=== PATIENT | female | born 1955 | race Caucasian/White ===

== ENCOUNTER 2022-04-29 08:00 | Outpatient (CLI) | payer BC ==
[2022-04-29 12:11] LABS: BASOPHILS # (AUTO) 0.1 10^3/uL (0.0-0.1); BASOPHILS % (AUTO) 1.2 %; EOSINOPHILS # (AUTO) 0.1 10^3/uL (0.0-0.7); EOSINOPHILS % (AUTO) 1.8 %; HGB - HEMOGLOBIN 15.1 g/dL (12.0-16.0); LYMPHOCYTES # (AUTO) 1.1 10^3/uL (1.5-3.5); LYMPHOCYTES % (AUTO) 18.4 %; MEAN CORPUSCULAR HEMOGLOBIN 31.1 pg (27.0-31.0); MEAN CORPUSCULAR HGB CONC 32.8 g/dL (32.0-36.0); MEAN CORPUSCULAR VOLUME 94.7 fL (81.0-99.0); MEAN PLATELET VOLUME 11.5 fL (7.9-10.8); MONOCYTES # (AUTO) 0.3 10^3/uL (0.0-1.0); MONOCYTES % (AUTO) 5.7 %; NEUTROPHILS # (AUTO) 4.3 10^3/uL (1.5-6.6); NEUTROPHILS % (AUTO) 72.4 %; PLT - PLATELET COUNT 149 10^3/uL (130-450); RED BLOOD COUNT 4.86 10^6/uL (4.20-5.40)
[2022-04-29 12:37] LABS: CALCIUM 9.7 mg/dL (8.5-10.3); CREATININE 0.7 mg/dL (0.4-1.0); POTASSIUM 4.2 mmol/L (3.5-5.0)
== END 2022-04-29 23:59 | disposition home or self-care (01) ==
LOC: LAB.N 08:00
PROVIDERS: ATTEND Physician Assistant Medical
DX: R10.9 Unspecified abdominal pain (principal)
CPT/HCPCS: 36415; 80048; 85025

== ENCOUNTER 2022-05-01 09:12 | Emergency (ER) | payer BC ==
[2022-05-01 09:34] VITALS: BP 141/70
--- NOTE | 2022-05-01 09:55 | ED Physician Documentation ---
PD HPI BACK PAIN - Stated complaint Stated Complaint: FLANK PX - Chief complaint Chief Complaint: Abd Pain - History obtained from History obtained from: Patient - History of Present Illness Timing - onset: How many days ago (few) Timing - duration: Days Timing - details: Abrupt onset, Waxing and waning Location: Mid, Right (around kidney/lower ribs area) Quality: Pain, Aching. No: Sharp, Tearing Associated symptoms: No: Fever, Weakness, Numbness Improves with: Rest Worsened by: Movement. No: Twisting, Palpation Contributing factors: No: Lifting, Twisting, Trauma Similar symptoms before: Has not had sx before Review of Systems Constitutional: denies: Fever, Chills Nose: denies: Rhinorrhea / runny nose, Congestion Throat: denies: Sore throat Cardiac: denies: Chest pain / pressure, Pedal edema, Calf pain Respiratory: denies: Cough Skin: denies: Rash, Lesions Neurologic: denies: Focal weakness, Numbness, Near syncope PD PAST MEDICAL HISTORY - Past Medical History Cardiovascular: None Respiratory: None Neuro: None Endocrine/Autoimmune: None - Present Medications Home Medications: Ambulatory Orders Medication Instructions Recorded Confirmed Losartan [Cozaar] 50 mg PO DAILY 05/01/22 05/01/22 - Allergies Allergies/Adverse Reactions: Allergies Allergy/AdvReac Type Severity Reaction Status Date / Time cephalexin [From Keflex] Allergy Unknown Verified 05/01/22 09:30 PD ED PE NORMAL - Vitals Vital signs reviewed: Yes - General General: Alert and oriented X 3, No acute distress, Well developed/nourished, Other (she declined any meds for the pain. ) - Cardiac Cardiac: RRR, No murmur - Respiratory Respiratory: Clear bilaterally - Abdomen Abdomen: Normal bowel sounds, Soft, Non distended, No organomegaly, Other (some tender RUQ without guarding nor percussion tenderness. ) - Back Back: No spinal TTP - Derm Derm: Normal color, Warm and dry, No rash - Neuro Neuro: Alert and oriented X 3, No motor deficit, No sensory deficit, Normal speech Results - Vitals Vitals: Oxygen O2 Source Room air - Labs Labs: Laboratory Tests 05/01/22 05/01/22 05/01/22 09:38 10:28 10:28 WBC 7.0 RBC 5.02 Hgb 15.7 Hct 46.8 MCV 93.2 MCH 31.3 H MCHC 33.5 RDW 13.1 Plt Count 174 MPV 11.2 H Neut # (Auto) 4.7 Lymph # (Auto) 1.6 [place] # (Auto) 0.5 Eos # (Auto) 0.2 Baso # (Auto) 0.1 Absolute Nucleated RBC 0.00 Nucleated RBC % 0.0 Sodium 137 Potassium 4.2 Chloride 99 L Carbon Dioxide 28 Anion Gap 10.0 BUN 15 Creatinine 0.7 Estimated GFR (MDRD) 84 L Glucose 114 H Calcium 10.0 Total Bilirubin 0.6 AST 60 H ALT 71 H Alkaline Phosphatase 116 Total Protein 7.5 Albumin 4.4 Globulin 3.1 Albumin/Globulin Ratio 1.4 Lipase 32 Urine Color YELLOW Urine Clarity CLEAR Urine pH 7.0 Ur Specific [place] 1.010 Urine Protein NEGATIVE Urine Glucose (UA) NEGATIVE Urine Ketones NEGATIVE Urine Occult Blood NEGATIVE Urine Nitrite NEGATIVE Urine Bilirubin NEGATIVE Urine Urobilinogen 0.2 (NORMAL) Ur Leukocyte Esterase NEGATIVE Ur Microscopic Review NOT INDICATED Urine Culture Comments NOT INDICATED - Rads (name of study) upper abd U/S Radiology: Prelim report reviewed (no acute findings. Renal cyst. ), See rad report PD MEDICAL DECISION MAKING - ED course Complexity details: reviewed results (no acute abnormality on imaging. Presume pain is musculoskeletal. ), considered differential (consider kidney stone, muscular, GB, vascular, skeletal. Discussed imaging with patient adn had consensus on CT but then patient changed and did not want the radiation compon ent, so changed to U/S. ), d/w patient Departure - Departure Disposition: 01 Home, Self Care Clinical Impression: Flank pain Condition: Stable Record reviewed to determine appropriate education?: Yes Instructions: ED Flank Pain Uncertain Cause Comments: Your CT scan shows a small kidney cyst which is something you have known about. There is no signs of acute inflammation or swelling of the kidney. The upper abdomen appears normal for you. The common bile duct is slightly enlarged at 7 mm but this is actually fairly common size after gallbladder surgery. Your lab tests and urine tests are normal. At this point I would presume musculoskeletal cause of your pain. I would suggest ibuprofen 400 to 600 mg 3 times a day with food regularly for the next several days to week. To that add Tylenol every 4-6 hours if needed for pain. Recheck if not improving well over the next several days to week. Return if worsening or other symptoms associated. Discharge Date/Time: 05/01/22 13:17
[2022-05-01 10:39] LABS: BASOPHILS # (AUTO) 0.1 10^3/uL (0.0-0.1); BASOPHILS % (AUTO) 1.2 %; EOSINOPHILS # (AUTO) 0.2 10^3/uL (0.0-0.7); EOSINOPHILS % (AUTO) 2.2 %; HCT - HEMATOCRIT 46.8 % (37.0-47.0); HGB - HEMOGLOBIN 15.7 g/dL (12.0-16.0); LYMPHOCYTES # (AUTO) 1.6 10^3/uL (1.5-3.5); LYMPHOCYTES % (AUTO) 22.4 %; MEAN CORPUSCULAR HEMOGLOBIN 31.3 pg (27.0-31.0); MEAN CORPUSCULAR HGB CONC 33.5 g/dL (32.0-36.0); MEAN CORPUSCULAR VOLUME 93.2 fL (81.0-99.0); MEAN PLATELET VOLUME 11.2 fL (7.9-10.8); MONOCYTES # (AUTO) 0.5 10^3/uL (0.0-1.0); MONOCYTES % (AUTO) 6.6 %; NEUTROPHILS # (AUTO) 4.7 10^3/uL (1.5-6.6); NEUTROPHILS % (AUTO) 67.2 %; PLT - PLATELET COUNT 174 10^3/uL (130-450); RED BLOOD COUNT 5.02 10^6/uL (4.20-5.40); RED CELL DISTRIBUTION WIDTH 13.1 % (12.0-15.0)
[2022-05-01 10:41] LABS: BILIRUBIN,URINE NEGATIVE (NEGATIVE); GLUCOSE, URINE (UA) NEGATIVE (NEGATIVE); KETONES,URINE (UA) NEGATIVE (NEGATIVE); LEUKOCYTE ESTERASE, URINE NEGATIVE (NEGATIVE); NITRITE,URINE NEGATIVE (NEGATIVE); OCCULT BLOOD,URINE NEGATIVE (NEGATIVE); PROTEIN,URINE NEGATIVE (NEGATIVE); UROBILINOGEN,URINE 0.2 (NORMAL) E.U./dL (NORMAL)
[2022-05-01 10:42] LABS: CLARITY,URINE CLEAR (CLEAR)
[2022-05-01 10:49] LABS: ALBUMIN 4.4 g/dL (3.2-5.5); ALBUMIN/GLOBULIN RATIO 1.4 (1.0-2.2); BILIRUBIN,TOTAL 0.6 mg/dL (0.2-1.0); CREATININE 0.7 mg/dL (0.4-1.0); POTASSIUM 4.2 mmol/L (3.5-5.0); TOTAL PROTEIN 7.5 g/dL (6.7-8.2)
--- NOTE | 2022-05-01 13:03 | Ultrasound Report ---
PROCEDURE: Abdomen Limited, ultrasound INDICATIONS: right flank to upper abd pain few days TECHNIQUE: Real-time focused scanning was performed of the abdomen, with image documentation. COMPARISON: None FINDINGS: Liver: Normal is size and echotexture. No evidence of focal mass lesion. No intra hepatic biliary ductal dilatation. Gallbladder: Cholecystectomy Common Bile Duct: 7.9 mm. Pancreas: Unremarkable as visualized. Right Kidney: Appropriate in size and echotexture. No evidence of hydronephrosis. No shadowing calc radha. No solid or cystic mass lesion. Simple 1.9 cm right renal cyst IMPRESSION: Unremarkable right upper quadrant ultrasound. Reviewed by: Kwaku Brandt MD on 05/01/2022 12:02 PM [facility] Approved by: Kwaku Brandt MD on 05/01/2022 12:02 PM [facility] Station ID: [id number]
== END 2022-05-01 13:17 | disposition home or self-care (01) ==
LOC: ED 09:12
DX: R10.30 Lower abdominal pain, unspecified (principal)
CPT/HCPCS: 36415; 80053; 81001; 81003; 83690; 85025; 87086; 99282; 99284